=== PATIENT | female | born 1970 ===

== ENCOUNTER 2023-02-07 06:05 | Day surgery (SDC) | payer OTHER ==
[~2023-02-07] VITALS: Ht 160 cm; Wt 65.8 kg
[~2023-02-07 06:05] MED LIST: CLONAZEPAM2 M1 PO
[2023-02-07] MEDS ORDERED: IBU600 MG PO (08:58)
== END 2023-02-07 12:45 | disposition home or self-care (01) ==
LOC: CIR.AMB 06:05
PROVIDERS: ATTEND Obstetrics & Gynecology Gynecology
DX: N84.0 Polyp of corpus uteri (principal); D25.0 Submucous leiomyoma of uterus; N72 Inflammatory disease of cervix uteri; N92.0 Excessive and frequent menstruation with regular cycle; Z20.822 Contact with and (suspected) exposure to COVID-19